=== PATIENT | male | born 1980 | race African-American/Black ===

== ENCOUNTER 2020-12-28 11:02 | Emergency (ER) | payer OTHER ==
[~2020-12-28] VITALS: Ht 172.7 cm; Wt 104.0 kg
[2020-12-28 13:20] VITALS: BP 140/87
[2020-12-28] MEDS ORDERED: HYDROCO/APAP1 TA9 PO (13:22)
[2020-12-28] MEDS ORDERED: FLEXERIL5 M1 PO (13:22)
== END 2020-12-28 13:25 | disposition home or self-care (01) | DRG 605 ==
LOC: ED 11:02
DX: S30.0XXA Contusion of lower back and pelvis, initial encounter (principal); S20.229A Contusion of unspecified back wall of thorax, initial encounter; M62.830 Muscle spasm of back; F17.210 Nicotine dependence, cigarettes, uncomplicated; W17.89XA Other fall from one level to another, initial encounter

== ENCOUNTER 2021-01-15 15:00 | Emergency (ER) | payer OTHER ==
[~2021-01-15] VITALS: Ht 172.7 cm; Wt 111.0 kg
[~2021-01-15 15:00] MED LIST: FLEXERIL5 M1 PO; HYDROCO/APAP1 TA9 PO
[2021-01-15] MEDS ORDERED: EC-NAPROSYN375 MG PO (17:55)
[2021-01-15] MEDS ORDERED: PREDNISONE50 MG PO (17:55)
[2021-01-15] MEDS ORDERED: CYCLOBENZAPRINE10 MG PO (17:55)
[2021-01-15] MEDS ORDERED: LORTAB 5/3255 MG PO (17:55)
[2021-01-15] MEDS ORDERED: VOLTAREN1%GEL TOP (17:57)
[2021-01-15 18:19] VITALS: BP 146/86
== END 2021-01-15 18:42 | disposition home or self-care (01) | DRG 914 ==
LOC: ED 15:00
DX: S39.002A Unspecified injury of muscle, fascia and tendon of lower back, initial encounter (principal); F17.200 Nicotine dependence, unspecified, uncomplicated; W17.89XA Other fall from one level to another, initial encounter; Y99.0 Civilian activity done for income or pay

== ENCOUNTER 2021-12-24 12:19 | Emergency (ER) | payer SELFPAY ==
[~2021-12-24] VITALS: Ht 172.7 cm; Wt 104.5 kg
[2021-12-24] VITALS (11 sets, daily range): BP systolic 116–141; BP diastolic 57–101
[~2021-12-24 12:19] MED LIST changes: +CYCLOBENZAPRINE10 MG PO; +EC-NAPROSYN375 MG PO; +LORTAB 5/3255 MG PO; +PREDNISONE50 MG PO; +VOLTAREN1%GEL TOP
[2021-12-24 13:01] LABS: HEMATOCRIT 46.8 % (39.0-50.0); HEMOGLOBIN 15.4 g/dl (14.0-18.0); IMMATURE GRANULOCYTES 0.2 % (0.0-5.0); MEAN CELL VOLUME 89.8 fL CALC (80.0-100.0); MEAN CORPUSCULAR HGB 29.6 pG CALC (26.0-32.0); MEAN CORPUSCULAR HGB CONC 32.9 g/dL CAL (32.0-36.0); NEUT# 2.97 thou/uL (1.82-7.42); RED BLOOD COUNT 5.21 mill/uL (4.70-6.10); RED CELL DISTRI WIDTH 13.1 % (11.5-15.5)
[2021-12-24 13:04] LABS: URINE BILIRUBIN - DIPSTICK NEGATIVE (NEGATIVE); URINE BLOOD DIPSTICK NEGATIVE (NEGATIVE); URINE COLOR YELLOW; URINE GLUCOSE - DIPSTICK NEGATIVE (NEGATIVE); URINE KETONE NEGATIVE (NEGATIVE); URINE LEUK ESTERASE NEGATIVE (NEGATIVE); URINE PROTEIN - DIPSTICK NEGATIVE (NEG-TRACE); URINE SPECIFIC GRAVITY 1.025; URINE UROBILINOGEN - DIPSTICK 0.2 E.U./dL (0.2)
[2021-12-24 13:05] LABS: URINE NITRITE - DIPSTICK NEGATIVE (Negative)
[2021-12-24 13:10] LABS: ALBUMIN 4.4 g/dL (3.2-5.0); ALKALINE PHOSPHATASE 58 u/l (38-126); ANION GAP 15 (6-22 (CALC)); BILIRUBIN, TOTAL 0.4 mg/dL (0.0-1.4); BUN 14 mg/dL (9-20); BUN/CREATININE RATIO 12 (12-20 (CALC)); CARBON DIOXIDE 22 mmol/l (22-30); CHLORIDE 108 mmol/l (95-108); CREATININE 1.2 mg/dL (0.7-1.3); GFR FOR AFR.AMER. > 60 ML/MIN (>=60 (CALC)); GFR OTHER RACES > 60 ML/MIN (>=60 (CALC)); LIPASE 107 u/l (23-300); POTASSIUM 4.1 mmol/l (3.5-5.1); SGOT/AST 39 u/l (17-59); SODIUM 140 mmol/l (137-146); TOTAL PROTEIN 7.7 g/dL (6.3-8.2)
[2021-12-24] MEDS ORDERED: FLEXERIL5 M1 PO (15:54)
== END 2021-12-24 16:09 | disposition home or self-care (01) | DRG 552 ==
LOC: ED 12:19
PROVIDERS: Family Medicine
DX: M54.50 Low back pain, unspecified (principal); F17.210 Nicotine dependence, cigarettes, uncomplicated

== ENCOUNTER 2022-09-22 14:44 | Emergency (ER) | payer SELFPAY ==
[~2022-09-22] VITALS: Ht 172.7 cm; Wt 108.0 kg
[2022-09-22 14:53] VITALS: BP 105/70
[2022-09-22 15:00] VITALS: BP 115/63
[2022-09-22 15:31] VITALS: BP 116/60
[2022-09-22 16:01] VITALS: BP 107/60
[2022-09-22 16:15] VITALS: BP 107/60
== END 2022-09-22 16:15 | disposition home or self-care (01) | DRG 179 ==
LOC: ED 14:44
DX: U07.1 COVID-19 (principal)